=== PATIENT | female | born 2000 ===

== ENCOUNTER 2019-02-24 10:11 | Emergency (ER) | payer OTHER ==
[~2019-02-24] VITALS: Ht 172.7 cm; Wt 72.1 kg
== END 2019-02-24 13:04 | disposition home or self-care (01) ==
LOC: ER 10:11
DX: T78.49XA Other allergy, initial encounter (principal); R21 Rash and other nonspecific skin eruption; X58.XXXA Exposure to other specified factors, initial encounter